=== PATIENT | female | born 1980 | race African-American/Black ===

== ENCOUNTER 2016-10-17 05:47 | Emergency (ER) | payer SELFPAY ==
[~2016-10-17] VITALS: Ht 165.1 cm; Wt 99.8 kg
[~2016-10-17 05:47] MED LIST: CIPRO500 MG PO; NORCO 5-325 TA1 EACH ORAL; OMEPRAZOLE40 M1 ORAL; ZANTAC150 MG ORAL
[2016-10-17] MEDS ORDERED: NKM (05:54)
[2016-10-17 06:07] LABS: BASOPHILS % (AUTO) 0.9 % (0.0-2.0); EOSINOPHILS % (AUTO) 5.5 % (0.0-3.0); LYMPHOCYTES % (AUTO) 41.2 % (20.0-45.0); MEAN CORPUSCULAR HEMOGLOBIN 26.5 PG (27.0-31.0); MEAN CORPUSCULAR HGB CONC 30.5 G/DL (32.0-36.0); MEAN CORPUSCULAR VOLUME 87 FL (80-99); MEAN PLATELET VOLUME 10.4 FL (6.5-10.1); NEUTROPHILS % (AUTO) 43.4 % (45.0-75.0); PLATELET COUNT 305 K/UL (150-450); RED CELL DISTRIBUTION WIDTH 17.7 % (11.6-14.8); WHITE BLOOD COUNT 4.6 K/UL (4.8-10.8)
[2016-10-17 06:10] VITALS: BP 105/40
[2016-10-17 06:22] LABS: ALANINE AMINOTRANSFERASE 12 U/L (3-33); ALBUMIN/GLOBULIN RATIO 1.4 (1.0-2.7); ANION GAP 14 (5-15); ASPARTATE AMINO TRANSFERASE 17 U/L (5-40); CALCIUM 9.4 mg/dL (8.6-10.2); CARBON DIOXIDE 28 mEQ/L (20-30); CHLORIDE 96 mEQ/L (98-107); GLOMERULAR FILTRATION RATE > 60 mL/min (>60); HEMOLYSIS 2; LIPASE 39 U/L (< 60); POTASSIUM 4.1 mEQ/L (3.4-4.9); SODIUM 138 mEQ/L (135-145); TOTAL PROTEIN 7.7 g/dL (6.6-8.7)
[2016-10-17 06:41] LABS: APPEARANCE,URINE CLEAR; KETONES,URINE NEGATIVE (NEGATIVE); LEUKOCYTE ESTERASE ,URINE 1+ (NEGATIVE); NITRITE,URINE NEGATIVE (NEGATIVE); PH,URINE 7 (4.5-8.0); PROTEIN,URINE 1+ (NEGATIVE); UROBILINOGEN,URINE NORMAL MG/DL (0.0-1.0)
[2016-10-17] MEDS ORDERED: Morphine Sulfate 2mg/ml Inj IVP ONE (06:45)
[2016-10-17] MEDS ORDERED: Ketorolac 30mg Inj IV ONE (06:45)
[2016-10-17 06:53] LABS: BACTERIA,URINE FEW /HPF; SQUAMOUS EPITHELIAL CELL,UR FEW /LPF (NONE/OCC)
--- NOTE | 2016-10-17 06:58 | Emergency Room Report ---
History of Present Illness General Chief Complaint: Abdominal Pain Source: Patient Present Illness HPI The patient states about 3 years ago she was diagnosed with gallstones. She states that she does have occasional flares. She states that she developed this one last night. She states that she believes this flare was triggered by oil in a dressing. She states that she has been told to have the gallbladder removed, however she does want to. She denies fever or chills. She states that she has had recurrent vomiting this morning. She states that she tried Excedrin for pain but vomited it back up. She denies dysuria or hematuria. She has no other complaints. Allergies: Coded Allergies: No Known Allergies (Unverified , 10/17/16) Patient History Past Medical History: see triage record, other - cholelithiasis, Anemia Past Surgical History: none Pertinent Family History: none Social History: Denies: alcohol use, drug use, smoking Last Menstrual Period: 3 days ago Now: No Reviewed Nursing Documentation: PMH: Agreed, PSxH: Agreed Review of Systems All Other Systems: negative except mentioned in HPI Physical Exam Vital Signs Date Time Temp Pulse Resp B/P Pulse Ox O2 Delivery O2 Flow Rate FiO2 10/17/16 05:50 97.7 78 16 140/80 99 10/17/16 06:10 Room Air Sp02 EP Interpretation: reviewed, normal General Appearance: no apparent distress, alert, GCS 15, non-toxic Head: normocephalic, atraumatic Eyes: bilateral eye PERRL, bilateral eye normal inspection ENT: hearing grossly normal, normal pharynx, no angioedema, normal voice Neck: full range of motion, supple/symm/no masses Respiratory: chest non-tender, lungs clear, normal breath sounds, speaking full sentences Cardiovascular #1: regular rate, rhythm, no edema Gastrointestinal: normal bowel sounds, soft, non-distended, no guarding, no rebound, tenderness - TTP in RUQ and epigastrium Rectal: deferred Musculoskeletal: back normal, gait/station normal, normal range of motion, non- tender Neurologic: alert, oriented x3, responsive, motor strength/tone normal, sensory intact, speech normal Psychiatric: judgement/insight normal, memory normal, mood/affect normal, no suicidal/homicidal ideation Skin: normal color, no rash, warm/dry, well hydrated Medical Decision Making Diagnostic Impression: Primary Impression: Cholelithiasis Additional Impression: UTI (urinary tract infection) ER Course This patient presents with biliary colic related to cholelithiasis. She was given Toradol IV with complete resolution of her symptoms. She underwent right upper quadrant ultrasound only showed cholelithiasis and no evidence of cholecystitis. Also, the patient's laboratory workup is benign. This is also reassuring that there is no cholecystitis. I discussed the option of cholecystectomy, however, the patient adamantly declines. The patient states that she will think about her options as an outpatient and does not want to be admitted for biliary colic. She does have complete resolution of her symptoms. She is pain free and has had no vomiting in the emergency department. Therefore, I feel that this is an appropriate plan. The patient is incidentally found to have a urinary tract infection. She is asymptomatic, however I will go ahead and treat. The patient was given close return precautions and followup instructions. Labs Test 10/17/16 05:55 10/17/16 06:00 White Blood Count 4.6 K/UL (4.8-10.8) Red Blood Count 4.90 M/UL (4.20-5.40) Hemoglobin 13.0 G/DL (12.0-16.0) Hematocrit 42.5 % (37.0-47.0) Mean Corpuscular Volume 87 FL (80-99) Mean Corpuscular Hemoglobin 26.5 PG (27.0-31.0) Mean Corpuscular Hemoglobin Concent 30.5 G/DL (32.0-36.0) Red Cell Distribution Width 17.7 % (11.6-14.8) Platelet Count 305 K/UL (150-450) Mean Platelet Volume 10.4 FL (6.5-10.1) Neutrophils (%) (Auto) 43.4 % (45.0-75.0) Lymphocytes (%) (Auto) 41.2 % (20.0-45.0) Monocytes (%) (Auto) 9.0 % (1.0-10.0) Eosinophils (%) (Auto) 5.5 % (0.0-3.0) Basophils (%) (Auto) 0.9 % (0.0-2.0) Sodium Level 138 mEQ/L (135-145) Potassium Level 4.1 mEQ/L (3.4-4.9) Chloride Level 96 mEQ/L (98-107) Carbon Dioxide Level 28 mEQ/L (20-30) Anion Gap 14 (5-15) Blood Urea Nitrogen 7 mg/dL (7-23) Creatinine 1.0 mg/dL (0.5-0.9) Estimat Glomerular Filtration Rate > 60 mL/min (>60) Glucose Level 114 mg/dL (74-106) Calcium Level 9.4 mg/dL (8.6-10.2) Total Bilirubin 0.4 mg/dL (0.0-1.2) Aspartate Amino Transf (AST/SGOT) 17 U/L (5-40) Alanine Aminotransferase (ALT/SGPT) 12 U/L (3-33) Alkaline Phosphatase 52 U/L (35-104) Total Protein 7.7 g/dL (6.6-8.7) Albumin 4.5 g/dL (3.5-5.2) Globulin 3.2 g/dL Albumin/Globulin Ratio 1.4 (1.0-2.7) Lipase 39 U/L (< 60) Urine Color Pale yellow Urine Appearance Clear Urine pH 7 (4.5-8.0) Urine Specific Roland 1.015 (1.005-1.035) Urine Protein 1+ (NEGATIVE) Urine Glucose (UA) Negative (NEGATIVE) Urine Ketones Negative (NEGATIVE) Urine Occult Blood 3+ (NEGATIVE) Urine Nitrite Negative (NEGATIVE) Urine Bilirubin Negative (NEGATIVE) Urine Urobilinogen Normal MG/DL (0.0-1.0) Urine Leukocyte Esterase 1+ (NEGATIVE) Urine RBC 2-4 /HPF (0 - 2) Urine WBC 10-15 /HPF (0 - 2) Urine Squamous Epithelial Cells Few /LPF (NONE/OCC) Urine Bacteria Few /HPF (NONE) Urine HCG, Qualitative Negative Urine Opiates Screen Positive (NEGATIVE) Urine Barbiturates Screen Negative (NEGATIVE) Phencyclidine (PCP) Screen Negative (NEGATIVE) Urine Amphetamines Screen Negative (NEGATIVE) Urine Benzodiazepines Screen Negative (NEGATIVE) Urine Cocaine Screen Negative (NEGATIVE) Urine Marijuana (THC) Screen Negative (NEGATIVE) CT/MRI/US Diagnostic Results CT/MRI/US Diagnostic Results : Imaging Test Ordered: RUQ US Impression Large gallstone in the gallbladder. No evidence of cholecystitis. See official report. Last Vital Signs Date Time Temp Pulse Resp B/P Pulse Ox O2 Delivery O2 Flow Rate FiO2 10/17/16 06:10 68 20 105/40 100 Room Air 10/17/16 05:50 97.7 Status: improved Disposition: HOME, SELF-CARE Condition: Improved Referrals: NON PHYSICIAN (PCP) MONIKA MORLEY D.O. October 17, 2016 06:57
[2016-10-17 07:39] VITALS: BP 108/58
[2016-10-17] MEDS ORDERED: IBUPROFEN600 MG ORAL (08:47)
[2016-10-17] MEDS ORDERED: ACETAMINOPHEN500 M3 ORAL (08:47)
[2016-10-17] MEDS ORDERED: NITROFURANTOIN100 M2 ORAL (08:50)
[2016-10-17 09:00] VITALS: BP 101/51
--- NOTE | 2016-10-17 10:13 | Diagnostic Imaging Report ---
Indication:Abdominal pain Technique: Grayscale and duplex Doppler imaging of the abdomen performed. Comparison: None Findings: Gallstones present. Patient is medicated and sonographic Chand's is negative but not reliable. There is no wall thickening or pericholecystic fluid. CBD is 2 mm. The liver, demonstrated part of the pancreas, aorta and IVC, both kidneys, spleen appear unremarkable. There is no biliary ductal dilatation identified. Doppler evaluation of the main portal vein shows patency. There is no ascites. No hydronephrosis seen. Impression: Cholelithiasis
== END 2016-10-17 09:00 | disposition home or self-care (01) ==
LOC: EMR 06:27
DX: K80.20 Calculus of gallbladder without cholecystitis without obstruction (principal); N39.0 Urinary tract infection, site not specified; R11.10 Vomiting, unspecified
CPT/HCPCS: 36415; 76700; 80053; 80300; 81003; 81025; 83690; 85025; 87086; 96374; 96375; 99284; J1885; J2405

== ENCOUNTER 2018-06-22 11:04 | Emergency (ER) | payer MEDICAID ==
[~2018-06-22] VITALS: Ht 152.4 cm; Wt 108.4 kg
[~2018-06-22 11:04] MED LIST changes: +ACETAMINOPHEN500 M3 ORAL; +IBUPROFEN600 MG ORAL; +NITROFURANTOIN100 M2 ORAL; +NKM
[2018-06-22] MEDS ORDERED: Albuterol ud Inhalation HHN ONE (11:30)
[2018-06-22] MEDS ORDERED: Ipratropium 0.02% Inh Soln 2.5ml UD HHN ONE (11:30)
[2018-06-22 11:32] VITALS: BP 115/65
[2018-06-22] MEDS ORDERED: ALBUTEROL SULF8.5 GM INH (12:05)
[2018-06-22] MEDS ORDERED: TAMIFLU75 MG ORAL (12:05)
[2018-06-22] MEDS ORDERED: CEPHALEXIN500 MG ORAL (12:05)
[2018-06-22 12:14] VITALS: BP 125/78
--- NOTE | 2018-06-22 13:27 | Emergency Room Report ---
History of Present Illness General Chief Complaint: Flu Like Symptoms Source: Patient Present Illness HPI 37-year-old female presents ED for evaluation. Complaining of flulike symptoms for the last 2 days. States she's got nasal congestion runny nose, cough. Productive with yellowish phlegm. Afebrile. States she has history of asthma in the past not at this time. Denying a flu shot this year. Denies sick contacts or recent travel. Complaining of also a discoloration pain to her right breast 2 months. Pain is dull, 5 out of 10, nonradiating. Denies any discharge. Denies any fevers or chills. No other aggravating relieving factors. Denies any other associated symptoms Allergies: Coded Allergies: No Known Allergies (Unverified , 06/22/18) Patient History Past Medical History: none Past Surgical History: none Pertinent Family History: none Social History: Denies: smoking, alcohol use, drug use Last Menstrual Period: Jun 13, 2018 Now: No Immunizations: UTD Reviewed Nursing Documentation: PMH: Agreed; PSxH: Agreed Nursing Documentation-PMH Past Medical History: No History, Except For Review of Systems All Other Systems: negative except mentioned in HPI Physical Exam Vital Signs Date Time Temp Pulse Resp B/P (MAP) Pulse Ox O2 Delivery O2 Flow Rate FiO2 06/22/18 11:09 98.2 85 16 110/61 100 Room Air 06/22/18 11:32 98 Sp02 EP Interpretation: reviewed, normal General Appearance: no apparent distress, alert, GCS 15, non-toxic Head: normocephalic Eyes: bilateral eye normal inspection, bilateral eye PERRL ENT: hearing grossly normal, normal pharynx, no angioedema, normal voice Neck: full range of motion, supple/symm/no masses Respiratory: chest non-tender, lungs clear, normal breath sounds, speaking full sentences Cardiovascular #1: regular rate, rhythm, no edema Gastrointestinal: normal inspection Rectal: deferred Genitourinary: no CVA tenderness Musculoskeletal: normal inspection Neurologic: alert, oriented x3, responsive, motor strength/tone normal, sensory intact, speech normal Psychiatric: normal inspection Skin: other - 1cm area of discoloration/induration to lateral aspect R breast. nonerythematous. no fluctuance or discharge Lymphatic: normal inspection Medical Decision Making Diagnostic Impression: Primary Impression: Breast pain Additional Impression: Influenza-like symptoms ER Course Hospital Course 37-year-old female presents ED with runny nose, congestion, cough. Also complaining of right breast pain Differential diagnoses include: URI, bronchitis, asthma/COPD, pneumonia Clinical course Patient placed on stretcher. After initial history, physical exam reveals an obese female in no acute distress. Bilateral TM unremarkable. No pharyngeal erythema. Lungs clear. Breathing treatment ordered. On reassessment breathing improved. There is a 1 cm area of discoloration, indurated on the right breast. Nonfluctuant. No discharge. Has been there for 2 months. Discussed findings with patient. Consideration for neoplastic process; there is a family history of breast cancer. I recommended patient follow-up with PMD for outpatient mammogram versus ultrasound. We'll discharge on antibiotics. Warm compresses. We will prescribe Tamiflu for the flulike symptoms, inhaler. we'll provide referrals Diagnosis - breast pain, influenza like symptoms Stable and discharged home with prescriptions for Rx tamiflu, keflex, albuterol. Instructed to followup with PMD. Return to ED if symptoms recur or worsen Last Vital Signs Date Time Temp Pulse Resp B/P (MAP) Pulse Ox O2 Delivery O2 Flow Rate FiO2 06/22/18 12:14 98.0 77 20 125/78 98 Room Air 06/22/18 11:57 21 Status: improved Disposition: HOME, SELF-CARE Condition: Stable Scripts Cephalexin* (KEFLEX*) 500 Mg Capsule 500 MG ORAL EVERY 6 HOURS for 7 Days, CAP Prov: Ronnie French MD 06/22/18 Albuterol Sulfate* (ALBUTEROL SULFATE MDI*) 8.5 Gm Hfa.aer.ad 2 PUFF INH Q6H, #1 EA 0 Refills Prov: Ronnie French MD 06/22/18 Oseltamivir Phosphate (Tamiflu) 75 Mg Capsule 75 MG ORAL TWICE A DAY for 5 Days, CAP Prov: Ronnie French MD 06/22/18 Referrals: NON PHYSICIAN (PCP) [facility] Patient Instructions: Influenza, Adult, [id number] Additional Instructions: followup with your PMD for outpatient breast ultrasound or mammogram Ronnie French MD Jun 22, 2018 13:27
== END 2018-06-22 12:15 | disposition home or self-care (01) ==
LOC: EMR 11:40
DX: N64.4 Mastodynia (principal); J11.1 Influenza due to unidentified influenza virus with other respiratory manifestations
CPT/HCPCS: 94640; 94664; 99284